=== PATIENT | female | born 2005 | race Caucasian/White ===

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

== ENCOUNTER 2024-01-04 05:52 | Emergency (ER) | payer OTHER, SELFPAY ==
--- NOTE | ~2024-01-04 | US_ITS ---
EXAMINATION: US pelvic complete DATE: 01/04/2024 07:53 INDICATION: Right lower quadrant abdominal pain. TECHNIQUE: Multiple transabdominal sonographic images of the pelvis were obtained. COMPARISON: None. FINDINGS: The uterus measures 6.9 x 3.9 x 4.2 cm. There is no free fluid in the pelvis. The endometrial complex measures 4 mm in thickness. The right ovary measures 2.9 x 2.1 x 1.9 cm. The left ovary measures 2.5 x 1.9 x 2.2 cm. There is normal vascular flow in the ovaries. IMPRESSION: 1. Normal pelvis. Reviewed, dictated and finalized at location [facility]. L WHEEL ENGRAVER IMPRESSION: 1. Normal pelvis.
--- NOTE | ~2024-01-04 | CT_ITS ---
CT of the Abdomen and Pelvis: Indication: Abdominal pain Technique: 2.5 mm axial scans were obtained through the abdomen and pelvis following intravenous adm inistration of 100 cc of Omnipaque 350. Dose reduction technique was used on this scan by utilizing a utomated exposure control and iterative reconstruction technique. The dose-length product (DLP) was 2 17.47 mGy-cm. Findings: Scans through the lung bases are unremarkable. The liver, spleen, pancreas, gallbladder, adrenals and kidneys are within normal limits. No evidence of aortic aneurysm. No lymphadenopathy. No bowel obstruction or bowel wall thickening. There is no evidence to suggest acute appendicitis. Images through the pelvis were performed. Urinary bladder unremarkable. No pelvic mass seen. No ascit es. Impression: No significant abnormalities seen. Reviewed, dictated and finalized at [facility]. CAL EDUCATOR Impression: No significant abnormalities seen.
[2024-01-04 05:59] VITALS: BP 113/89; PULSE 73; RESP 15; TEMP 36.3; O2SAT 100
--- NOTE | 2024-01-04 06:08 | PC.NURSE ---
Patient politely refused a straight catheter for a urine sample.
[2024-01-04 06:09] LABS: Basophils Percent Auto 0.5 % (0.2-1.2); Eosinophils Absolute Auto 0.1 K/mm3 (0-0.3); Eosinophils Percent Auto 1.2 % (0-4.4); Hemoglobin 13.6 g/dL (12.0-15.0); Immature Granulocyte Absolute 0.02 K/mm3 (0.00-0.031); Immature Granulocyte Percent A 0.3 % (0-0.5); Lymphocytes Absolute Auto 2.78 K/mm3 (0.9-3.2); Lymphocytes Percent Auto 36.4 % (18.3-44.2); Mean Corpuscular Hemoglobin 32.1 pg (26-34); Mean Corpuscular Volume 94.3 fl (80-100); Mean Platelet Volume 8.9 fl (7.4-10.4); Monocytes Absolute Auto 0.7 K/mm3 (0.1-0.6); Neutrophils Percent Auto 52.6 % (45.5-73.1); Platelet Count Result 209 k/mm3 (150-375); Red Blood Count 4.24 M/mm3 (4.2-5.4); Red Cell Distribution Width 12.5 % (11.5-14.5); White Blood Count 7.6 K/mm3 (4.5-10.0)
--- NOTE | 2024-01-04 06:09 | ED_ITS ---
HPI - General Adult General Chief complaint: Abdominal Pain <Patrick Ortiz MD - Last Filed: 01/04/24 19:00> Stated complaint: abd cramping <Patrick Ortiz MD - Last Filed: 01/04/24 19:00> Time Seen by Provider: 01/04/24 06:00 <Patrick Ortiz MD - Last Filed: 01/04/24 19:00> History of Present Illness HPI narrative: 18-year-old female presenting to the emergency department for evaluation for right lower quadrant abdominal pain. Patient states the pain started approximately 3:00 a.m.. Patient states that it is approximately time for her menstrual cycle. Patient did remove her NuvaRing approximately 4 days ago. Patient reports a family history of PCOS but has not had multiple ovarian cysts herself. Patient declined any medications for pain control <Patrick Ortiz MD - Last Filed: 01/04/24 19:00> Related Data Allergies/adverse reactions: Allergies Allergy/AdvReac Type Severity Reaction Status Date / Time fluoxetine [From Prozac] Allergy Rash Verified 12/15/22 14:19 trazodone Allergy Rash Verified 01/04/24 05:53 <Patrick Ortiz MD - Last Filed: 01/04/24 19:00> Review of Systems Review of Systems: All systems reviewed & are unremarkable except as noted in HPI and below <Patrick Ortiz MD - Last Filed: 01/04/24 19:00> Exam Narrative: APPEARANCE: Well appearing, no pain, no distress, well-nourished. HEAD: normocephalic, atraumatic. EYES: PERRLA/EOMI, conjunctivae clear. NOSE: Normal no drainage EARS:TMS clear with good light reflex. THROAT: Pharynx clear, no exudate. NECK: Supple. No adenopathy, no masses. RESPIRATORY: Airway patent, respirations nonlabored. Clear to auscultation bilaterally, no rales, rhonchi, wheezing. CARDIOVASCULAR: Regular rate and rhythm without murmurs rubs or gallops. ABDOMINAL: Right lower quadrant abdominal pain MUSCULOSKELETAL: Moves all extremities. Strength/ROM intact, No edema, No calf tenderness. NEURO: Alert. Cranial nerves II through XII intact. SKIN: Warm, dry. Normal Color <Patrick Ortiz MD - Last Filed: 01/04/24 19:00> Course Vital Signs Vital signs: Vital Signs Temperature 97.4 F L 01/04/24 05:59 Pulse Rate 73 01/04/24 05:59 Respiratory Rate 15 01/04/24 05:59 Blood Pressure 113/89 01/04/24 05:59 Pulse Oximetry 100 01/04/24 05:59 Oxygen Delivery Room Air 01/04/24 05:59 Temperature 97.7 F 01/04/24 06:14 Pulse Rate 70 01/04/24 09:32 Respiratory Rate 18 01/04/24 09:32 Blood Pressure 113/88 01/04/24 09:32 Pulse Oximetry 100 01/04/24 09:32 Oxygen Delivery Room Air 01/04/24 05:59 <Patrick Ortiz MD - Last Filed: 01/04/24 19:00> Vital Signs Temperature 97.4 F L 01/04/24 05:59 Pulse Rate 73 01/04/24 05:59 Respiratory Rate 15 01/04/24 05:59 Blood Pressure 113/89 01/04/24 05:59 Pulse Oximetry 100 01/04/24 05:59 Oxygen Delivery Room Air 01/04/24 05:59 Temperature 97.7 F 01/04/24 06:14 Pulse Rate 70 01/04/24 09:32 Respiratory Rate 18 01/04/24 09:32 Blood Pressure 113/88 01/04/24 09:32 Pulse Oximetry 100 01/04/24 09:32 Oxygen Delivery Room Air 01/04/24 05:59 <Elizabeth Bowers MD - Last Filed: 01/04/24 09:40> Medical Decision Making MDM Narrative Medical decision making narrative: 18-year-old female with right pelvic pain, thinks it may be her NuvaRing; abdomen is soft with some very minimal tenderness to the right lower abdomen. Ultrasound unremarkable, CT then obtained to rule out appendicitis which is also unremarkable. Patient given pain medication and on re-evaluation states she does feel slightly better, she has a doctor to follow up with, I have let her know she can return for any further issues and she is agreeable to this plan. No episodes of emesis here, new pain. <Elizabeth Bowers MD - Last Filed: 01/04/24 09:40> Vital Signs Vital Signs: Vital Signs Temperature 97.4 F L 01/04/24 05:59 Pulse Rate 73 01/04/24 05:59 Respiratory Rate 15 01/04/24 05:59 Blood Pressure 113/89 01/04/24 05:59 Pulse Oximetry 100 01/04/24 05:59 Oxygen Delivery Room Air 01/04/24 05:59 Temperature 97.7 F 01/04/24 06:14 Pulse Rate 70 01/04/24 09:32 Respiratory Rate 18 01/04/24 09:32 Blood Pressure 113/88 01/04/24 09:32 Pulse Oximetry 100 01/04/24 09:32 Oxygen Delivery Room Air 01/04/24 05:59 <Patrick Ortiz MD - Last Filed: 01/04/24 19:00> Vital Signs Temperature 97.4 F L 01/04/24 05:59 Pulse Rate 73 01/04/24 05:59 Respiratory Rate 15 01/04/24 05:59 Blood Pressure 113/89 01/04/24 05:59 Pulse Oximetry 100 01/04/24 05:59 Oxygen Delivery Room Air 01/04/24 05:59 Temperature 97.7 F 01/04/24 06:14 Pulse Rate 70 01/04/24 09:32 Respiratory Rate 18 01/04/24 09:32 Blood Pressure 113/88 01/04/24 09:32 Pulse Oximetry 100 01/04/24 09:32 Oxygen Delivery Room Air 01/04/24 05:59 <Elizabeth Bowers MD - Last Filed: 01/04/24 09:40> Lab Data Result diagrams: 01/04/24 06:03 01/04/24 06:03 <Patrick Ortiz MD - Last Filed: 01/04/24 19:00> Labs: Lab Results 01/04/24 01/04/24 01/04/24 Range/Units 06:03 06:32 06:34 WBC 7.6 (4.5-10.0) K/mm3 RBC 4.24 (4.2-5.4) M/mm3 Hgb 13.6 (12.0-15.0) g/dL Hct 40.0 (37.0-47.0) % MCV 94.3 (80-100) fl MCH 32.1 (26-34) pg MCHC 34.0 (32-36) g/dl RDW 12.5 (11.5-14.5) % Plt Count 209 (150-375) k/mm3 MPV 8.9 (7.4-10.4) fl Immature Gran % (Auto) 0.3 (0-0.5) % Neut % (Auto) 52.6 (45.5-73.1) % Lymph % (Auto) 36.4 (18.3-44.2) % [place] % (Auto) 9.0 H (2.6-8.5) % Eos % (Auto) 1.2 (0-4.4) % Baso % (Auto) 0.5 (0.2-1.2) % Lymph # (Auto) 2.78 (0.9-3.2) K/mm3 [place] # (Auto) 0.7 H (0.1-0.6) K/mm3 Eos # (Auto) 0.1 (0-0.3) K/mm3 Baso # (Auto) 0.0 (0.0-0.1) K/mm3 Abs Immat Gran (auto) 0.02 (0.00-0.031) K/mm3 Absolute Neuts (auto) 4.0 (1.3-6.7) K/mm3 Absolute Nucleated RBC 0.000 (0.0-0.012) K/mm3 Nucleated RBC % 0.0 (0.0-0.2) % Sodium 139 (137-145) mmol/L Potassium 3.6 (3.4-5.0) mmol/L Chloride 106 (98-107) mmol/L Carbon Dioxide 25 (22-30) mmol/L Anion Gap 8 (4-12) mmol/L BUN 7 (7-17) mg/dL Creatinine 0.70 (0.7-1.0) mg/dL Estim Creat Clear Calc 91 ml/min Estimated GFR > 60 (59 - ) Glucose 92 (65-110) mg/dL Calcium 8.8 (8.4-10.2) mg/dL Total Bilirubin 0.4 (0.2-1.3) mg/dL AST 28 (14-36) U/L ALT 12 (6-35) U/L Alkaline Phosphatase 56 (38-126) U/L Total Protein 8.0 (6.3-8.2) g/dL Albumin 4.2 (3.5-5.1) g/dL Lipase 118 (23-300) U/L Urine Color Light orange (Yellow) Urine Appearance Clear (Clear) Urine pH 6.5 (5.0-9.0) Ur Specific [place] 1.004 (1.001-1.035) Urine Protein 1+ H (Negative) mg/dL Urine Glucose (UA) Negative (Negative) mg/dL Urine Ketones Negative (Negative) mg/dL Ur Blood (Man) 3+ H (Negative) Urine Nitrate Negative (Negative) Urine Bilirubin Negative (Negative) Urine Urobilinogen 0.2 (<2.0) mg/dL Leukocyte Esterase Rfl 1+ H (Negative) MIRIAM/UL Urine RBC 11-20 H (0-2) /hpf Urine WBC 6-10 H (0-3) /hpf Ur Squamous Epith Cells None seen (Few) /hpf Urine Bacteria None seen /hpf Urine Casts 0-2 POC Urine HCG, Qual Negative (Negative) <Patrick rOtiz MD - Last Filed: 01/04/24 19:00> Lab Results 01/04/24 01/04/24 01/04/24 Range/Units 06:03 06:32 06:34 WBC 7.6 (4.5-10.0) K/mm3 RBC 4.24 (4.2-5.4) M/mm3 Hgb 13.6 (12.0-15.0) g/dL Hct 40.0 (37.0-47.0) % MCV 94.3 (80-100) fl MCH 32.1 (26-34) pg MCHC 34.0 (32-36) g/dl RDW 12.5 (11.5-14.5) % Plt Count 209 (150-375) k/mm3 MPV 8.9 (7.4-10.4) fl Immature Gran % (Auto) 0.3 (0-0.5) % Neut % (Auto) 52.6 (45.5-73.1) % Lymph % (Auto) 36.4 (18.3-44.2) % [place] % (Auto) 9.0 H (2.6-8.5) % Eos % (Auto) 1.2 (0-4.4) % Baso % (Auto) 0.5 (0.2-1.2) % Lymph # (Auto) 2.78 (0.9-3.2) K/mm3 [place] # (Auto) 0.7 H (0.1-0.6) K/mm3 Eos # (Auto) 0.1 (0-0.3) K/mm3 Baso # (Auto) 0.0 (0.0-0.1) K/mm3 Abs Immat Gran (auto) 0.02 (0.00-0.031) K/mm3 Absolute Neuts (auto) 4.0 (1.3-6.7) K/mm3 Absolute Nucleated RBC 0.000 (0.0-0.012) K/mm3 Nucleated RBC % 0.0 (0.0-0.2) % Sodium 139 (137-145) mmol/L Potassium 3.6 (3.4-5.0) mmol/L Chloride 106 (98-107) mmol/L Carbon Dioxide 25 (22-30) mmol/L Anion Gap 8 (4-12) mmol/L BUN 7 (7-17) mg/dL Creatinine 0.70 (0.7-1.0) mg/dL Estim Creat Clear Calc 91 ml/min Estimated GFR > 60 (59 - ) Glucose 92 (65-110) mg/dL Calcium 8.8 (8.4-10.2) mg/dL Total Bilirubin 0.4 (0.2-1.3) mg/dL AST 28 (14-36) U/L ALT 12 (6-35) U/L Alkaline Phosphatase 56 (38-126) U/L Total Protein 8.0 (6.3-8.2) g/dL Albumin 4.2 (3.5-5.1) g/dL Lipase 118 (23-300) U/L Urine Color Light orange (Yellow) Urine Appearance Clear (Clear) Urine pH 6.5 (5.0-9.0) Ur Specific [place] 1.004 (1.001-1.035) Urine Protein 1+ H (Negative) mg/dL Urine Glucose (UA) Negative (Negative) mg/dL Urine Ketones Negative (Negative) mg/dL Ur Blood (Man) 3+ H (Negative) Urine Nitrate Negative (Negative) Urine Bilirubin Negative (Negative) Urine Urobilinogen 0.2 (<2.0) mg/dL Leukocyte Esterase Rfl 1+ H (Negative) MIRIAM/UL Urine RBC 11-20 H (0-2) /hpf Urine WBC 6-10 H (0-3) /hpf Ur Squamous Epith Cells None seen (Few) /hpf Urine Bacteria None seen /hpf Urine Casts 0-2 POC Urine HCG, Qual Negative (Negative) <Elizabeth Bowers MD - Last Filed: 01/04/24 09:40> Discharge Plan Discharge Clinical Impression: Abdominal pain <Patrick Ortiz MD - Last Filed: 01/04/24 19:00> Patient Disposition: Home, Self-Care <Patrick Ortiz MD - Last Filed: 01/04/24 19:00> Condition: Stable <Patrick Ortiz MD - Last Filed: 01/04/24 19:00> Instructions: Abdominal Pain (ED) <Patrick Ortiz MD - Last Filed: 01/04/24 19:00> Additional Instructions: Please follow up with your doctor; you can always return for any further issues. <Patrick Ortiz MD - Last Filed: 01/04/24 19:00> Prescriptions: New acetaminophen [Tylenol Extra Strength] 500 mg tablet 1,000 mg PO Q6H PRN (Reason: pain) Qty: 50 0RF ondansetron 4 mg tablet,disintegrating 4 mg PO Q8H PRN (Reason: nausea and vomiting) Qty: 10 0RF ibuprofen 600 mg tablet 600 mg PO TID PRN (Reason: fever or pain) Qty: 30 0RF <Patrick Ortiz MD - Last Filed: 01/04/24 19:00> Follow-up/Referrals: PHYSICIAN NOT ON STAFF,NONSTAFF [Primary Care Provider] - <Patrick Ortiz MD - Last Filed: 01/04/24 19:00>
[2024-01-04] MEDS: SODIUM CHLORIDE 0.9% IV 1,000 ML 999 ML IV CONT (06:11)
[2024-01-04 06:14] VITALS: BP 113/89; PULSE 72; RESP 16; TEMP 36.5; O2SAT 99
[2024-01-04 06:18] LABS: Alanine Aminotransferase 12 U/L (6-35); Albumin Level 4.2 g/dL (3.5-5.1); Alkaline Phosphatase 56 U/L (38-126); Anion Gap 8 mmol/L (4-12); Aspartate Amino Transferase 28 U/L (14-36); Bilirubin,Total 0.4 mg/dL (0.2-1.3); Blood Urea Nitrogen 7 mg/dL (7-17); Calcium 8.8 mg/dL (8.4-10.2); Carbon Dioxide 25 mmol/L (22-30); Chloride 106 mmol/L (98-107); Estimated CRCL calculation 91 ml/min; Estimated Glomerular Filt Rate > 60; Glucose 92 mg/dL (65-110); Lipase 118 U/L (23-300); Potassium 3.6 mmol/L (3.4-5.0); Sodium 139 mmol/L (137-145)
[2024-01-04 06:36] LABS: BEDSIDEPREGUCG Negative (Negative)
[2024-01-04 06:46] LABS: Bacteria Urine None Seen /hpf; Non Pathogenic Casts 0-2; Squamous Epithelial Cell Urine None Seen /hpf (Few)
[2024-01-04 06:47] LABS: Add Urine Microscopic? YES; Appearance Urine Clear (Clear); Bilirubin Urine Negative (Negative); Blood Urine 3+ (Negative); Glucose Urine UA Negative (Negative); Ketones Urine Negative (Negative); Leukocyte Esterase Ur 1+ LEU/UL (Negative); Nitrate Urine Negative (Negative); Protein Urine 1+ mg/dL (Negative); Specific Grav Ur 1.004 (1.001-1.035); Urobilinogen Urine 0.2 mg/dL (<2.0); pH Urine 6.5 (5.0-9.0)
[2024-01-04 06:48] LABS: Color Urine Light Orange (Yellow)
[2024-01-04] MEDS: KETOROLAC 15 MG/ML VIAL (*BKC) IV PUSH (09:31)
[2024-01-04 09:32] VITALS: BP 113/88; PULSE 70; RESP 18; O2SAT 100
== END 2024-01-04 10:03 | disposition home or self-care (01) ==
PROVIDERS: Emergency Medicine; Emergency Provider Emergency Medicine
DX: R10.31 Right lower quadrant pain (principal)
CPT/HCPCS: 36415; 74177; 76856; 80053; 81001; 81025; 83690; 85025; 87086; 96361; 96374; 99284; J1885; J7030; Q9967